=== PATIENT | female | born 1990 | race Hispanic/Latino ===

== ENCOUNTER 2017-05-23 16:07 | Day surgery (SDC) | payer OTHER ==
[2017-05-23] MEDS ORDERED: Acetaminophen 500 MG TAB PO PRN (16:45)
--- NOTE | 2017-05-23 17:27 | PDOC.LDHP ---
Labor and Delivery H&P Chief complaint: other (Lower pubic pressure) HPI: This is a patient of the clinic first assessed by the resident team publications inspector. She is a 26 yo prior ( no HX PTL) with suprapubic pain. Denies frequency or dysuria. No VB, no abnormal dsch. No recent trauma. Current gestational age (weeks): 19 (4 days) Dating criteria: last menstrual period Grav: 2 Para: 1 Current complications: none Abnormal US findings: No Current medications: none Previous surgical history: none Social history: none - Physical Exam Vital signs reviewed and normal: yes General: NAD Heart: RRR Lungs: CTAB Abdomen: gravid - Plan Plan: observation in L&D (Assessment: 19-20 weeks with LAP NOS. We will order cath UA for now and observe, No evidence vaginal bleed or dsch. Hydrate prn. Await labs. Cervical exam pending.)
--- NOTE | 2017-05-23 17:28 | PDOC.EVN ---
Event Note - Event Note Event Note: 26 yo at 19.4 here for lower abdominal pain. Pain began around 1pm today, is suprapubic in nature with occasional pain in her back. +FM. Denies any F/Ch , bleeding, discharge, LoF. Feels like she is having occasional contractions, nothing showing up on the monitor yet. Prior at term. Followed at [facility], scheduled for anatomy US tomorrow. Plan: Will check UA, hydrate well (IV if needed), give tylenol for pain.
[2017-05-23 18:08] LABS: Bilirubin Negative (Negative); Blood, Urine Negative (Negative); Clarity CLEAR (Clear); Glucose, Urine (Dipstick) Negative (Negative); Leukocyte Negative (Negative); Nitrite Negative (Negative); Protein, Urine (Dipstick) Negative (Neg-Trace); Specific Gravity, Urine 1.008 (1.002-1.036); Urobilinogen 0.2 mg/dL (0.2-1.0)
--- NOTE | 2017-05-23 19:31 | PDOC.EVN ---
Event Note - Event Note Event Note: follow up- cervix was closed on exam. UA without evidence of infection. OK for outpatient management.
== END 2017-05-23 19:45 | disposition home or self-care (01) ==
LOC: L&D/OP 16:07
PROVIDERS: ATTEND Obstetrics & Gynecology
DX: O99.89 Other specified diseases and conditions complicating pregnancy, childbirth and the puerperium (principal); R10.2 Pelvic and perineal pain; R10.30 Lower abdominal pain, unspecified; Z3A.19 19 weeks gestation of pregnancy
CPT/HCPCS: 51701; 81003; 99283